=== PATIENT | female | born 1960 ===

== ENCOUNTER 2022-08-06 05:35 | Day surgery (SDC) | payer OTHER ==
[~2022-08-06] VITALS: Ht 160 cm; Wt 89.8 kg
[~2022-08-06 05:35] MED LIST: LIPITOR20 MG PO; METFORMIN HCL500 M3 PO; TOPROL XL50 M1 PO; ZESTRIL5 MG PO
[2022-08-06] MEDS ORDERED: TRAMADOL HCL50 MG PO (08:54)
== END 2022-08-06 12:15 | disposition home or self-care (01) ==
LOC: CIR.AMB 05:35
PROVIDERS: ATTEND Surgery
DX: E04.2 Nontoxic multinodular goiter (principal); E04.1 Nontoxic single thyroid nodule; Z20.822 Contact with and (suspected) exposure to COVID-19; Z88.6 Allergy status to analgesic agent